=== PATIENT | male | born 1960 | race Asian ===

== ENCOUNTER 2019-11-05 05:51 | Day surgery (SDC) | payer MEDICARE, OTHER ==
[~2019-11-05] VITALS: Ht 172.7 cm; Wt 61.2 kg
[2019-11-05] VITALS (11 sets, daily range): BP systolic 93–136; BP diastolic 63–78
[~2019-11-05 05:51] MED LIST: BENICAR20 MG ORAL; COMBIVIR1 EA ORAL; CRESTOR20 MG ORAL; DIOVAN160 MG ORAL; FENOFIBRATE40 MG PO; ISENTRESS400 MG ORAL; LR 1000ml 1,000 ML IVLG SCH; METOPROLO PO; NORVIR100 MG ORAL; SELZENTRY150 MG ORAL; VIREAD300 MG ORAL; [UNRECOGNIZED DRUG - OTHER] PO
--- NOTE | 2019-11-05 06:49 | Pre-Procedure Note/Attestation ---
Pre-Procedure Note/Attestation Complete Prior to Procedure Planned Procedure: not applicable Procedure Narrative: Colonoscopy, possible biopsy, polypectomy, hemostasis, submucosal injection Indications for Procedure Pre-Operative Diagnosis: Rectal bleeding, history of polyps Attestation I attest that I discussed the nature of the procedure; its benefits; risks and complications; and alternatives (and the risks and benefits of such alternatives ), prior to the procedure, with the patient (or the patient's legal healthcare sales representative). I attest that, if there was a reasonable possibility of needing a blood transfusion, the patient (or the patient's legal healthcare sales representative) was given the [facility] standardized written summary, pursuant to the [place] Blood Safety Act ([place] Health and Safety Code # 1645, as amended). I attest that I re-evaluated the patient just prior to the surgery and that there has been no change in the patient's H&P, except as documented below: Regla Orona MD Nov 05, 2019 06:49
[2019-11-05] MEDS ORDERED: Flumazenil 0.5mg/5ml Inj IV ONE (06:59)
[2019-11-05] MEDS ORDERED: Lidocaine 1% Plain 30 ml INJ ONE (06:59)
[2019-11-05] MEDS ORDERED: LR 1000ml ONE (07:00)
[2019-11-05] MEDS ORDERED: LR 1000ml 1,000 ML IVLG SCH (07:11)
[2019-11-05] MEDS ORDERED: Labetalol 5mg/ml 20ml vial IV PRN (07:15)
[2019-11-05] MEDS ORDERED: HYDROcodone/Acetamin 7.5/325 tab ORAL PRN (07:15)
[2019-11-05] MEDS ORDERED: Meperidine 25mg/0.5ml Inj (FOR RIGORS ONLY) IV PRN (07:15)
[2019-11-05] MEDS ORDERED: Ketorolac 30mg Inj IV PRN ×2 (07:15)
[2019-11-05] MEDS ORDERED: DiphenhydrAMINE 50mg/ml Inj IVP PRN (07:15)
[2019-11-05] MEDS ORDERED: Atropine Sulfate 0.4mg/ml inj IVP PRN (07:15)
[2019-11-05] MEDS ORDERED: oxyCODONE HCL/Acetaminophen 5/325mg ORAL PRN (07:15)
[2019-11-05] MEDS ORDERED: Midazolam 2mg/2ml Inj IVP PRN (07:15)
[2019-11-05] MEDS ORDERED: HYDROcodone/Acetamin 5/325 tab ORAL PRN (07:15)
[2019-11-05] MEDS ORDERED: LORazepam Inj 2mg/ml 1ml IV PRN (07:15)
[2019-11-05] MEDS ORDERED: Hydromorphone 0.5mg/0.5ml inj IVP PRN (07:15)
[2019-11-05] MEDS ORDERED: Metoclopramide 10mg/2ml Inj IVP PRN (07:15)
[2019-11-05] MEDS ORDERED: fentaNYL 100 mcg/2 mL IV PRN (07:15)
--- NOTE | 2019-11-05 07:17 | Anethesia Preoperative Eval ---
Anesthesia Pre-op PMH/ROS General Date of Evaluation: Nov 05, 2019 Time of Evaluation: 06:57 Anesthesiologist: Venessa ASA Score: ASA 3 Mallampati Score Class I : Soft palate, uvula, fauces, pillars visible Class II: Soft palate, uvula, fauces visible Class III: Soft palate, base of uvula visible Class IV: Only hard plate visible Mallampati Classification: Class III Surgeon: Adwoa Anesthesia History: none Family History: no anesthesia problems Allergies: Coded Allergies: No Known Allergies (Unverified , 11/05/19) Medications: see eMAR Patient NPO?: Yes Past Medical History Cardiovascular: Reports: HTN, other - HL Hematology/Immune: Reports: other - Non Hodgkins Lymphoma PSxH Narrative: Hernia Repair Anesthesia Pre-op Phys. Exam Physician Exam Last Vital Signs Date Time Temp Pulse Resp B/P (MAP) Pulse Ox O2 Delivery O2 Flow Rate FiO2 11/05/19 06:21 97.4 68 18 136/78 100 Room Air Constitutional: NAD Neurologic: CN 2-12 intact Cardiovascular: RRR Respiratory: CTA Gastrointestinal: S/NT/ND Airway Exam Mallampati Score: Class III MO: full ROM: full Teeth: intact Anesthesia Pre-op A/P Risk Assessment & Plan Assessment: ASA 3 Plan: GA Status Change Before Surgery: Saeid Metzger MD Nov 05, 2019 07:17
--- NOTE | 2019-11-05 07:21 | Immediate Post-Op Evaluation ---
Immediate Post-Op Evalulation Immediate Post-Op Evalulation Procedure: Colonopscopy Date of Evaluation: Nov 05, 2019 Time of Evaluation: 08:04 IV Fluids: 500 LR Blood Products: 0 Estimated Blood Loss: 2 Urinary Output: 0 Blood Pressure Systolic: 94 Blood Pressure Diastolic: 65 Pulse Rate: 63 Respiratory Rate: 16 O2 Sat by Pulse Oximetry: 100 Temperature (Fahrenheit): 98.7 Pain Score (1-10): 1 Nausea: No Vomiting: No Complications 0 Patient Status: awake, reacts, patent, none Hydration Status: adequate Saeid Clifford MD Nov 05, 2019 07:21
--- NOTE | 2019-11-05 07:22 | 48 Hour Post Anesthesia Eval ---
Post Anesthesia Evaluation Procedure: Colonopscopy Date of Evaluation: Nov 05, 2019 Time of Evaluation: 11:12 Blood Pressure Systolic: 118 0: 74 Pulse Rate: 72 Respiratory Rate: 18 Temperature (Fahrenheit): 98.6 O2 Sat by Pulse Oximetry: 100 Airway: patent Nausea: No Vomiting: No Pain Intensity: 1 Hydration Status: adequate Cardiopulmonary Status: Stable Mental Status/LOC: patient returned to baseline Follow-up Care/Observations: 0 Post-Anesthesia Complications: 0 Follow-up care needed: ready to discharge Saeid Clifford MD Nov 05, 2019 07:22
--- NOTE | 2019-11-05 07:42 | Brief Operative Note ---
Immediate Post Operative Note Operative Note Pre-op Diagnosis: Rectal bleeding, history of polyps Procedure: Colonoscopy with hot snare biopsy Post-op Diagnosis: polyps x 2 (sigmoid, cecum), right-sided diverticula Post-op Diagnosis: same as pre-op plus Findings: consistent w/pre-op dx studies Surgeon: Regla Orona MD Anesthesiologist: Saeid Clifford MD Anesthesia: moderate sedation Specimen: yes Complications: none Condition: stable Fluids: see anesthesia record Estimated Blood Loss: minimal Drains: none Implant(s) used?: No Regla rOona MD Nov 05, 2019 07:42
--- NOTE | 2019-11-05 07:43 | Endoscopy Procedure Note ---
Endoscopy Procedure Note General Procedures Performed: colonoscopy Operative Findings/Diagnosis: polyps x 2 Specimen: yes Pt Tolerated Procedure Well: Yes Estimated Blood Loss: minimal Anesthesia Anesthesiologist: Saeid Clifford MD Anesthesia: moderate sedation Medications Medication Given: see anesthesia record Inserted Devices Implant(s) used?: No Quality Quality of Bowel Preparation: Fair Did scope reach the cecum?: Yes GI Core Measures 50 yrs or older w/o bx or poly: No 10yrs. F/U recommended: No If not recommended, why?: Above average risk Regla Orona MD Nov 05, 2019 07:43
--- NOTE | 2019-11-05 11:44 | Operative Note - Dictated ---
DATE OF OPERATION: 11/05/2019 PREPROCEDURE DIAGNOSIS: History of previous colon polyp, history of non-Hodgkin's lymphoma. POSTPROCEDURE DIAGNOSES: Polyps x2 (sigmoid colon, cecum) and right-sided diverticulosis. SURGEON: Regla Orona MD. ANESTHESIOLOGIST: Saeid Clifford MD. ANESTHESIA: Propofol sedation. INDICATION FOR PROCEDURE: The patient is a 59-year-old male. His last colonoscopy was done by sd in 2013 which showed an ascending colon polyp. The patient has a history of non-Hodgkin's lymphoma and a history of HIV diagnosed in 1988. 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 In light of the patient's history, it was determined at this time to proceed with a followup colonoscopy. DESCRIPTION OF PROCEDURE: Upon consent of the patient, the patient was brought to the procedure room and placed in a left lateral decubitus position. Once adequate sedation had been established with propofol drip, anal Pap smear was first performed and sent off for cytology in light of his history of anal condyloma. Digital rectal exam was performed, which showed some small internal hemorrhoids. Olympus colonoscope was advanced through the anus into the rectum. The descending colon, splenic flexure, transverse colon, hepatic flexure, ascending colon visualized. The cecum was reached and ileocecal valve and appendiceal orifice were identified. The patient's prep was noted to be fair. The colonoscope was slowly withdrawn. There was noted to be right-sided diverticulosis, which were not acutely inflamed. There were two benign-appearing polyps in the cecum and also in the sigmoid colon. The cecal polyp was removed with cold forceps biopsy and the sigmoid polyp was removed with a hot snare biopsy and sent off the field as separate specimens. The postpolypectomy sites were noted to have no active bleeding. Upon reaching the rectum, air was evacuated from the rectum and the colonoscope was removed. The patient was awakened from anesthesia and brought to postanesthesia recovery room in stable condition. IMPRESSION: Polyps x2, right-sided diverticulosis, small internal hemorrhoids. PLAN: Repeat colonoscopy in 5 years, continue high fiber diet, yearly followup. Regla Orona M.D. DR: ROBBI JOB#: [id number] CC: Marcie Culp M.D.
== END 2019-11-05 09:15 | disposition home or self-care (01) ==
LOC: GAS 05:51
DX: K63.5 Polyp of colon (principal); K57.90 Diverticulosis of intestine, part unspecified, without perforation or abscess without bleeding; D12.0 Benign neoplasm of cecum; D12.5 Benign neoplasm of sigmoid colon; B20 Human immunodeficiency virus [HIV] disease; I10 Essential (primary) hypertension; Z86.010 Personal history of colon polyps; Z85.72 Personal history of non-Hodgkin lymphomas
CPT/HCPCS: 45380; 45384; 94003; J2001; J2250; J2704; J7120; 94150